=== PATIENT | female | born 1985 | race Caucasian/White ===

== ENCOUNTER → 2017-05-19 | Day surgery (SDC) | payer BC ==
[~2017-05-19] VITALS: Ht 162.6 cm; Wt 65.3 kg
[~2017-05-19] MED LIST: COLACE 100MG C100 MG PO; IBUPROFEN600 MG PO; NORCO 5-325 TA1 EACH PO; ORTHO MICRONO0.35 MG PO; PRENATAL 19 TA1 EACH PO
[2017-05-19 11:07] LABS: HEMOGLOBIN 13.1 gm/dl (12.3-15.3); RED BLOOD COUNT 4.27 M/UL (4.00-5.10); WHITE BLOOD COUNT 7.2 K/UL (4.5-11.0)
== END | disposition home or self-care (01) ==
LOC: GENOP 10:00 → OR 10:00 → EDSTATUS 10:11
PROVIDERS: Obstetrics & Gynecology
PROC: 10D17ZZ Extraction of Products of Conception, Retained, Via Natural or Artificial Opening (ICD-10-PCS; principal; 2017-05-19 11:32)
DX: O02.1 Missed abortion (principal); Z88.1 Allergy status to other antibiotic agents
CPT/HCPCS: 36415; 85025; J1100; J1885; J2250; J2405; J2765; J2795; J3010; J7030; J7120